=== PATIENT | female | born 1970 ===

== ENCOUNTER 2017-07-30 15:54 | Emergency (ER) | payer BC, OTHER ==
[2017-07-30 16:26] VITALS: BP 114/64
--- NOTE | 2017-07-30 17:00 | UC ---
Palpitation/Dysrhythmia HP - HPI Summary HPI Summary: 47 year old female with no significant pmhx here with complaint of palpitations. palpitation started 9 days ago, reports it usually lasts 20 minutes. Feels like her heart skips a beat. She denied any associated symptoms except for sob last night. Patient reports traveling about 3 months ago but no other recent immobilization. No n/v/d/chest pain, exertional symptoms, change in ET. No caffeine intake. Otherwise, no vaginal bleeding, diarrhea or any other complaints. Her symptoms are resolved now. She only has these symptoms at night but today she had it in the morning as well. Patient also reports she is under a lot of stress because she came to [place] to take care of her mother who had complications from surgery. Patient has been on ketogenic diet for the past 4-5 months. But no other recent diet/medications change. - History of Current Complaint Chief Complaint: UCChestPain Stated Complaint: HEART PALPITATIONS Time Seen by Provider: 07/30/17 16:02 Hx Obtained From: Patient Onset/Duration: Sudden Onset Severity Initially: Mild Severity Currently: Mild Pain Intensity: 0 Character: Irregular, Fluttering Alleviating Factor(s): Exertion Associated Signs & Symptoms: Negative: Syncope, Chest Pain, Diaphoresis, Nausea , Vomiting - Risk Factors Cardiac: Negative Pulmonary Embolism: Negative Atrial Fibrillation: Negative - Allergy/Home Medications Allergies/Adverse Reactions: Allergies Allergy/AdvReac Type Severity Reaction Status Date / Time No Known Allergies Allergy Verified 07/30/17 16:20 Home Medications: Home Medications Aspirin [[facility]s Aspirin] 81 mg PO DAILY 07/30/17 [History Confirmed ] Calcium Citrate/Vitamin D2 [Calcium with Vit D Tablet] 1 each PO DAILY 07/30/17 [History Confirmed 07/30/17] Calcium Polycarbophil [Fiber Tabs] 625 mg PO DAILY 07/30/17 [History Confirmed 07/30/17] Ferrous Sulfate [Iron High-Potency] 325 mg PO DAILY 07/30/17 [History Confirmed 07/30/17] Multivitamin [Multivitamins] 1 cap PO DAILY 07/30/17 [History Confirmed 07/30/17 ] [place]-3 Fatty Acids/Fish Oil [Fish Oil 1,000 mg Capsule] 1 cap PO DAILY [History Confirmed 07/30/17] PMH/Surg Hx/FS Hx/Imm Hx Previously Healthy: Yes - Surgical History Surgical History: Yes Surgery Procedure, Year, and Place: ADENOID REMOVAL 10 Y/O. HYSTERECTOMY 2017. 1 OVARY REMOVAL 2017 - Family History Known Family History: Positive: Cardiac Disease - Social History Alcohol Use: None Substance Use Type: None Smoking Status (MU): Never Smoked Tobacco Review of Systems Constitutional: Negative Skin: Negative Eyes: Negative ENT: Negative Respiratory: Shortness Of Breath Cardiovascular: Negative Gastrointestinal: Negative Genitourinary: Negative Motor: Negative Neurovascular: Negative Musculoskeletal: Negative Neurological: Negative Psychological: Negative All Other Systems Reviewed And Are Negative: Yes Physical Exam Triage Information Reviewed: Yes Vital Signs: Initial Vital Signs Temp 37.1 C 07/30/17 16:17 Pulse 69 07/30/17 16:17 Resp 18 07/30/17 16:17 BP 114/64 07/30/17 16:17 Pulse Ox 97 07/30/17 16:17 Vital Signs Reviewed: Yes Eye Exam: Normal ENT Exam: Normal Respiratory Exam: Normal Cardiovascular: Positive: RRR, No Murmur, Pulses Normal Abdomen Description: Positive: Nontender, No Organomegaly Musculoskeletal Exam: Normal Neurological Exam: Normal Diagnostics - EKG Cardiac Rhythm: Sinus: Normal Ectopy: None ST Segment: Normal Palpitations Course/Dx - Course Course Of Treatment: palpitations. Patient's urine is positive for leuk esterase and ketones(she is on ketogenic diet). She does not have urinary symptoms, so will hold off for cultures. Instructed patient to go to the ED for cbc, trop and BMP. She wants to go tomorrow in [place]. I have discussed with her about the risks and she understands fully. - Differential Dx/Diagnosis Differential Diagnosis/HQI/PQRI: AV Block, Coronary Artery Disease, Pulmonary Embolism Provider Diagnoses: palpitations. Patient is well appearing, NAD. Given the increased frequency and duration of symptoms, I urged patient to go to the ED for labs and cxr. EKG here with nml intervals. Discharge - Discharge Plan Condition: Good Disposition: TRANS HIGHER LVL OF CARE FAC Patient Education Materials: Heart Palpitations (DC) Referrals: No Primary Care Phys,NOPCP [Primary Care Provider] - Additional Instructions: You should go to the ED for further evaluation as instructed.
== END 2017-07-30 17:38 | disposition short-term general hospital (02) ==
LOC: UCEAST 15:54
DX: R00.2 Palpitations (principal); R06.02 Shortness of breath; Z32.02 Encounter for pregnancy test, result negative; Z79.82 Long term (current) use of aspirin
CPT/HCPCS: 81003; 84702; 87086; 93005; 99202; G0463